=== PATIENT | female | born 1965 | race Caucasian/White ===

== ENCOUNTER 2022-06-23 07:56 | Outpatient (CLI) | payer OTHER | END 2022-06-23 08:01 | disposition home or self-care (01) | LOC: RX STUDY 07:56 | PROVIDERS: ATTEND Internal Medicine Gastroenterology | DX: K21.9 Gastro-esophageal reflux disease without esophagitis (principal); R13.10 Dysphagia, unspecified; K44.9 Diaphragmatic hernia without obstruction or gangrene; R10.13 Epigastric pain ==

== ENCOUNTER 2023-04-04 07:17 | Outpatient (CLI) | payer OTHER | END 2023-04-04 07:29 | disposition home or self-care (01) | LOC: RX STUDY 07:17 | PROVIDERS: ATTEND Internal Medicine Gastroenterology | DX: K44.9 Diaphragmatic hernia without obstruction or gangrene (principal) ==